=== PATIENT | male | born 1970 | race Caucasian/White ===

== ENCOUNTER → 2023-03-20 | Outpatient (CLI) | payer OTHER, SELFPAY ==
--- NOTE | 2023-03-20 11:36 | NEURO ---
NCS and/or EMG Patient Report Ordering Doctor: Issa Marcelo DATE OF SERVICE: 03/20/23 Clinical Summary: This is a 52 year old male presenting with symptoms of right shoulder/arm pain. This EMG/NCS was performed to evaluate for right cervical radiculopathy. Nerve Conduction Studies Summary: The right median-D2 SNAP distal latency was prolonged. The right median-APB CMAP distal latency was prolonged. There was greater than 10 m/s drop in the right ulnar motor conduction velocity across the elbow. Needle Examination Summary: Needle examination demonstrated a higher proportion of motor unit action potentials with reduced recruitment, increased amplitude, increased duration, and polyphasia in the right abductor pollicis brevis muscle. Impression: This is an abnormal study. There is electrodiagnostic evidence of a severe, right median mononeuropathy at the wrist (carpal tunnel syndrome), with secondary motor fiber axonal loss. There is electrodiagnostic evidence of a mild, right ulnar mononeuropathy at the elbow. There is no electrodiagnostic evidence of a right cervical radiculopathy. Multi Select Codes Neurology Neurology Interp Codes: 35286-49 Musc test done w/n test comp (interp) (1) and 07655-20 Nrv cndj tst 5-6 studies (interp)
== END | disposition home or self-care (01) ==
PROVIDERS: PCP Physician Assistant; Referring Provider Student in an Organized Health Care Education/Training Program; Visit Provider Student in an Organized Health Care Education/Training Program
DX: R20.2 Paresthesia of skin (principal)
CPT/HCPCS: 95886; 95909